=== PATIENT | male | born 1990 | race Caucasian/White ===

== ENCOUNTER 2018-03-31 12:04 | Inpatient (IN) ==
--- NOTE | 2018-03-31 12:19 | Emergency Department Note ---
Disposition Clinical Impression: Septic joint of right hand Qualifiers: Septic arthritis organism: due to unspecified organism Qualified Code(s): M00.9 - Pyogenic arthritis, unspecified Disposition: Admitted As Inpatient Condition: Good Referrals: NONE,PCP [Primary Care Provider] - Forms: ED Satisfaction Letter Time of Disposition: 13:50 Skin/Abscess/FB HPI Chief complaint: ED Skin/Abscess/Foreign Body Stated complaint: R finger swelling Time Seen by Provider: 03/31/18 12:11 Source: patient Mode of arrival: ambulatory Limitations: no limitations Nursing Notes Reviewed: Yes Vital Signs Reviewed: Yes HPI Narrative: 27-year-old who comes in with a swollen right index finger. Patient seen here yesterday for same. Patient states he is on Vivitrol but is continuing to inject methamphetamine which he lasted several days ago. Pt Subjective Complaint: abscess/boil Onset (ago): day(s) Location: R hand (Index finger) Severity: moderate Severity scale (1-10): 4 Quality: aching Consistency: constant Improves with: none Worsens with: movement Context: IVDA Associated symptoms: Reports: denies other symptoms Allergies Allergy/AdvReac Type Severity Reaction Status Date / Time hydrocodone Allergy Vomiting Verified 03/31/18 12:06 Constitutional: Denies: fever, chills, weakness, weight change Eyes: Denies: eye pain, eye discharge, vision change ENT ED: Denies: ear pain, throat pain, dental pain, hearing loss, epistaxis, congestion, dysphagia Cardiovascular: Denies: chest pain, palpitations, dyspnea on exertion, edema, syncope Respiratory: Denies: cough, dyspnea, wheezes, hemoptysis, stridor Gastrointestinal: Denies: abdominal pain, nausea, vomiting, diarrhea, constipation, hematemesis, melena, hematochezia Genitourinary: Denies: urgency, dysuria, frequency, hematuria Musculoskeletal: Reports: arthralgia. Denies: back pain, neck pain, myalgia Integumentary: Denies: rash, abrasion, lesions Neurological: Denies: headache, weakness, numbness, paresthesias, confusion, abnormal gait, vertigo Psychiatric: Denies: anxiety, depression, suicidal thoughts, homicidal thoughts , auditory hallucinations, visual hallucinations Endocrine: Denies: fatigue Hematological/Lymphatic: Denies: easy bleeding, easy bruising Allergic/Immunologic: Denies: facial swelling, urticaria Past Medical History - Past Medical History Medical history: Reports: non-contributory, other Psychiatric history: Reports: anxiety, depression - Social History Smoking Status: Current every day smoker Smokeless Tobacco Status: No Alcohol use: Reports: rarely Drug use: Reports: IV Drug Use Physical Exam - General Limitations: no limitations General appearance: alert, in no apparent distress - Head Head exam: atraumatic, normocephalic, normal inspection - Eye Eye exam: Present: normal appearance, PERRL, EOMI - Expanded Eye Exam Pupils: Left: reactive - ENT ENT exam: normal exam, normal oropharynx, mucous membranes moist - Expanded ENT Exam External ear exam: Present: normal external inspection Mouth exam: Present: normal external inspection Teeth exam: Present: normal inspection Throat exam: Present: normal inspection - Neck Neck exam: Present: normal inspection, full ROM, trachea midline - Chest Chest inspection: Present: normal inspection, symmetric chest wall rise - Respiratory Respiratory exam: Present: normal lung sounds bilaterally - Cardiovascular Cardiovascular exam: Present: regular rate, normal rhythm, normal heart sounds - Abdominal Exam Abdominal exam: Present: soft, Non-Tender. Absent: tenderness, distention, guarding, rebound, rigidity - Extremities Exam Extremities exam: Present: normal inspection, full ROM. Absent: tenderness, pedal edema - Expanded Upper Extremity Exam Shoulder exam: Present: normal inspection, full ROM Arm exam: Present: normal inspection, full ROM Elbow exam: Present: normal inspection, full ROM Forearm/Wrist exam: Present: normal inspection, full ROM Hand exam: Present: tenderness, swelling, erythema (Index finger at the DIP joint) Vascular exam: Normal: capillary refill, radial pulse - Expanded Lower Extremity Exam Hip/Pelvis exam: Present: normal inspection, full ROM Upper leg exam: Present: normal inspection, full ROM Knee exam: Present: normal inspection, full ROM Lower leg exam: Present: normal inspection, full ROM Ankle exam: Present: normal inspection, full ROM Foot/toe exam: Present: normal inspection, full ROM Neurovascular/Tendon exam: Absent: motor deficit, sensory deficit, tendon deficit - Back Exam Back exam: Present: normal inspection, full ROM. Absent: tenderness - Neurological Exam Neurological exam: Present: alert, oriented X3 - Expanded Neurological Exam Patient oriented to: Present: person, place, time Coma Scale Eye Opening: Spontaneous Coma Scale Motor Response: Obeys Commands Coma Scale Verbal Response: Oriented Coma Scale Total: 15 - Psychiatric Psychiatric exam: Present: normal affect, normal mood - Skin Skin exam: Present: warm, dry, intact, normal color Course - Reevaluation(s) Reevaluation #1: 27-year-old with the infection overlying the DIP joint he has a lot of pain with movement of the joint could be a septic joint. Consultation obtained with orthopedics and will see the patient in consult. Time: 13:51 - Consultations Consultation #1: Discussed with Dr. Grover, admit to the hospitalist he will see the patient in consult. Time: 13:50 Consultation #2: Discussed with Dr. Rhodes Time: 13:59 Vital Signs Temperature 97.4 F L 03/31/18 12:05 Pulse Rate 103 03/31/18 12:05 Respiratory Rate 16 03/31/18 12:05 Blood Pressure 143/88 03/31/18 12:05 O2 Sat by Pulse Oximetry 97 03/31/18 12:05 Temperature 97.4 F L 03/31/18 12:18 Pulse Rate 103 03/31/18 12:18 Respiratory Rate 16 03/31/18 12:18 Blood Pressure 143/88 03/31/18 12:18 O2 Sat by Pulse Oximetry 97 03/31/18 12:18 Oxygen Delivery Oxygen Delivery Room Air Procedures - Abscess I/D Consent obtained: verbal consent Site: upper extremity Side (if applicable): right Local Anesthetic: lidocaine 1% Technique: incised with #11 blade Amount of fluid: 1 (Culture obtained) Skin/Abscess/Foreign Body - Lab Data Result diagrams: 03/31/18 12:36 03/31/18 12:36 Lab Results 03/31/18 03/31/18 03/31/18 Range/Units 12:36 12:36 12:36 WBC 14.9 H (4.3-11.1) K/mcL RBC 4.79 (4.19-5.50) M/mcL Hgb 14.8 (12.9-16.9) g/dL Hct 43.7 (37.5-50.1) % MCV 91.2 (83.0-100.0) fL MCH 30.9 (28.0-33.3) pg MCHC 33.9 (31.6-35.5) g/dL RDW 12.7 (11.5-14.5) % Plt Count 302 (140-400) K/mcL MPV 10.2 (9.4-12.4) fL Immature Gran % 0.4 (0-4) % Seg Neutrophils % 82.9 % Lymphocytes % 10.3 % Monocytes % 5.8 % Eosinophils % 0.3 % Basophils % 0.3 % Neutrophils # 12.4 H (1.6-8.9) K/mcL Lymphocytes # 1.5 (0.6-4.6) K/mcL Monocytes # 0.9 (0.0-1.3) K/mcL Eosinophils # 0.0 (0.0-0.6) K/mcL Basophils # 0.1 (0.0-0.2) K/mcL ESR 15 H (0-10) mm/hr Sodium 137 (136-145) mEq/L Potassium 3.5 (3.5-5.1) mEq/L Chloride 104 (98-107) mEq/L Carbon Dioxide 27 (23-29) mEq/L BUN 14 (6-20) mg/dL Creatinine 0.88 (0.70-1.30) mg/dL Est GFR ( Amer) > 60 (> 60) Est GFR (Non-Af Amer) > 60 (> 60) BUN/Creatinine Ratio 16 (6-26) Glucose 121 H (70-105) mg/dL Calculated Osmolality 286 (280-300) Calcium 9.4 (8.6-10.3) mg/dL
[2018-03-31 12:55] LABS: Eosinophils % 0.3 %; Hematocrit 43.7 % (37.5-50.1); Hemoglobin 14.8 g/dL (12.9-16.9); Immature Granulocytes % 0.4 % (0-4); Lymphocytes % 10.3 %; Mean Corpuscular HGB Conc 33.9 g/dL (31.6-35.5); Mean Corpuscular Hemoglobin 30.9 pg (28.0-33.3); Mean Corpuscular Volume 91.2 fL (83.0-100.0); Mean Platelet Volume 10.2 fL (9.4-12.4); Monocytes % 5.8 %; Platelet Count 302 K/mcL (140-400); Red Blood Count 4.79 M/mcL (4.19-5.50); Red Cell Distribution Width 12.7 % (11.5-14.5); Segmented Neutrophils % 82.9 %
[2018-03-31 12:56] LABS: Basophils # 0.1 K/mcL (0.0-0.2); Basophils % 0.3 %; Lymphocytes # 1.5 K/mcL (0.6-4.6); Monocytes # 0.9 K/mcL (0.0-1.3); Neutrophils # 12.4 K/mcL (1.6-8.9)
[2018-03-31 13:15] LABS: BUN/Creatinine Ratio 16 (6-26); Blood Urea Nitrogen 14 mg/dL (6-20); Calcium 9.4 mg/dL (8.6-10.3); Carbon Dioxide 27 mEq/L (23-29); Chloride 104 mEq/L (98-107); Glucose 121 mg/dL (70-105); Osmolality,Calculated 286 (280-300); Potassium 3.5 mEq/L (3.5-5.1); Sodium 137 mEq/L (136-145); eGFR For African Americans > 60 (> 60); eGFR For Non-African Americans > 60 (> 60)
[2018-03-31] MEDS ORDERED: Lidocaine 1% 20 ML MDV INFILT ONE (13:47)
[2018-03-31] MEDS ORDERED: Piperacillin/Tazobactam 3.375 GM in 0.9 % Sodium Chloride Mini Bag 100 ML IVPB ONE (13:47)
[2018-03-31] MEDS ORDERED: Ketorolac 15 MG/ML VIAL IVP ONE (14:24)
[2018-03-31] MEDS ORDERED: *HR* Promethazine 25 MG/ML VIAL IVP PRN (15:09)
[2018-03-31] MEDS ORDERED: Acetaminophen 325 MG TABLET PO PRN (15:09)
[2018-03-31] MEDS ORDERED: Naloxone 0.4 MG/ML INJ IVP PRN (15:09)
[2018-03-31] MEDS ORDERED: Ketorolac 15 MG/ML VIAL IVP PRN (15:09)
[2018-03-31] MEDS ORDERED: Ondansetron 4 MG/2 ML VIAL IVP PRN (15:09)
[2018-03-31] MEDS ORDERED: *HR* LORazepam 1 MG TABLET PO PRN (15:17)
--- NOTE | 2018-03-31 15:27 | Internal Med History&Physical ---
Date of Encounter: 03/31/18 Time of Encounter: 14:45 Internal Medicine - H&P: HPI Chief complaint: Right had index finger swelling Admitted From: Emergency Dept Plans for Post Hospital Care: Home History of present illness: Mr. Quiñonez is a 27 year old male with a known past medical history of narcotic dependent currently on Vivitrol injections, active IV drug abuse with Methamphetamine, had last dose last night, and chronic tobacco dependence patient presented to emergency room complaining about one week history of swelling , redness and pain in his right index finger which seems to progressive worsening now. Patient denied of any trauma, however he mentioned he does not remember exactly what happened. He noticed a small pimple like growth on the right index finger at the distal phalanx which seems to progressive worsening now. His CT of the hand showed cellulitis off the 2nd visit with no well-defined, drainable fluid collection Past Med Surg Social Fam HX - Past Medical History Medical history: non-contributory, other Additional medical history: TBI 2008 Psychiatric history: anxiety, depression - Social History Smoking Status: Current every day smoker Smokeless Tobacco Status: No Alcohol use: rarely Drug use: IV Drug Use (Actively doing IV methamphetamines) - Additional Family History Additional family history: Family hsitory reviewed and non contribuitory to current problem. Internal Medicine - H&P: Meds Naltrexone Microspheres [Vivitrol] 380 mg IM QMONTH 03/31/18 [History] 3 Allergy/AdvReac Type Severity Reaction Status Date / Time haloperidol [From Haldol] AdvReac See Verified 03/31/18 15:01 Comments hydrocodone AdvReac Vomiting Verified 03/31/18 15:01 All Systems PM: A 10-system review of systems was performed and is negative for pertinent findings except as documented above in the HPI. Review of systems: All the systems are reviewed everything is benign except the systems and symptoms I mentioned in the history of present illness - Constitutional Vitals: Temp Pulse Resp BP Pulse Ox 97.4 F L 103 16 143/88 97 03/31/18 12:18 03/31/18 12:18 03/31/18 12:18 03/31/18 12:18 03/31/18 12:18 General appearance: Present: A&O X 3, no acute distress, answers questions appropriately - Head Head exam: Present: atraumatic, normal inspection - Neck Neck exam general surgery: Present: supple - Respiratory Respiratory exam: Present: decreased breath sounds. Absent: rales, respiratory distress, rhonchi, wheezes - Cardiovascular Cardiovascular exam: Present: +S1, +S2, tachycardia. Absent: diastolic murmur, gallop, rubs, systolic murmur - GI/Abdominal GI/Abdominal exam: Present: normal bowel sounds, soft. Absent: rebound, rigid, tenderness - Extremities Exam Extremities exam: Present: tenderness ( severe tenderness over the right index finger noticed). Absent: calf tenderness, pedal edema Additional comments: He does have small have 0.5cm size Loculated fluid collection over the right index finger of the distal phalanx area on the palmar region noticed - Expanded Upper Extremities Exam Hand wrist exam: Present: swelling, tenderness (Right index finger) - Back Exam Back exam: Absent: CVA tenderness (L), CVA tenderness (R) - Neurological Exam Neurological exam: Present: alert, oriented X3 - Psychiatric Psychiatric exam: Present: normal affect, normal mood - Skin Skin exam: Absent: rash Internal Med - H&P Results - Labs CBC & Chem 7: 03/31/18 12:36 03/31/18 12:36 - Assessment and plan (1) Sepsis Current Visit: Yes Status: Acute Assessment and plan: Admit the patient into Medr he does meet sepsis criteria with elevated white count, sinus tachycardia and source of infection as right hand index finger abscess blood cultures were drawn in the ER requested for wound culture after I & D in the ER started him on empirical antibiotic with clindamycin IV hydration Qualifiers: Sepsis type: sepsis due to unspecified organism Qualified Code(s): A41.9 - Sepsis, unspecified organism (2) Abscess of right index finger Current Visit: Yes Status: Acute Assessment and plan: Ortho consulted by ER attending I & D attempted in the ER will follow-up on the one culture started him on empirical antibiotic clindamycin for better aerobic and anaerobic coverage continue symptomatic and supportive care (3) Cellulitis of hand, right Current Visit: Yes Status: Acute (4) Substance abuse Current Visit: Yes Status: Acute Assessment and plan: Counseled to quit drugs (5) IV drug abuse Current Visit: Yes Status: Acute Assessment and plan: Had last dose of methamphetamine last night High risk for withdrawal symptoms will place him on CIWA scale assessment IV hydration Ativan as needed for anxiety/withdrawal symptoms (6) Tobacco dependence Current Visit: Yes Status: Acute Assessment and plan: Counseled to quit smoking placed on nicotine patch - Time Spent With Patient Total time spent is greater than 50% in coordination of care (as documented) at patient's floor/unit and/or counseling patient:
[2018-03-31] MEDS: 0.9 % Sodium Chloride 1,000 ML IVC SCH (16:19)
[2018-03-31] MEDS: Nicotine 21 MG PATCH.TD24 TD SCH (16:19)
[2018-03-31] MEDS: Clindamycin 600 MG/50 ML 600 MG/50 ML IV.SOLN IVPB SCH ×2 (16:22→23:01)
[2018-04-01 04:38] LABS: Basophils % 0.4 %; Eosinophils # 0.2 K/mcL (0.0-0.6); Eosinophils % 1.6 %; Hematocrit 41.8 % (37.5-50.1); Hemoglobin 13.8 g/dL (12.9-16.9); Immature Granulocytes % 0.4 % (0-4); Lymphocytes # 1.2 K/mcL (0.6-4.6); Lymphocytes % 11.6 %; Mean Corpuscular Hemoglobin 30.1 pg (28.0-33.3); Mean Corpuscular Volume 91.3 fL (83.0-100.0); Mean Platelet Volume 10.3 fL (9.4-12.4); Monocytes # 0.8 K/mcL (0.0-1.3); Monocytes % 7.9 %; Neutrophils # 8.1 K/mcL (1.6-8.9); Nucleated Red Blood Cells 0.2 /100 WBC (0); Platelet Count 257 K/mcL (140-400); Red Blood Count 4.58 M/mcL (4.19-5.50); Segmented Neutrophils % 78.1 %
[2018-04-01 04:56] LABS: BUN/Creatinine Ratio 14 (6-26); Blood Urea Nitrogen 10 mg/dL (6-20); Calcium 8.7 mg/dL (8.6-10.3); Carbon Dioxide 25 mEq/L (23-29); Chloride 110 mEq/L (98-107); Glucose 107 mg/dL (70-105); Osmolality,Calculated 290 (280-300); Potassium 3.8 mEq/L (3.5-5.1); Sodium 140 mEq/L (136-145); eGFR For African Americans > 60 (> 60); eGFR For Non-African Americans > 60 (> 60)
[2018-04-01] MEDS: 0.9 % Sodium Chloride 1,000 ML IVC SCH (05:17)
--- NOTE | 2018-04-01 07:40 | Orthopedic Consult Note ---
Date of Encounter: 04/01/18 Time of Encounter: 07:37 Assessment and Plan (1) Abscess of right index finger Current Visit: Yes Status: Acute I did discuss the diagnosis in detail with the patient. He does have a subcutaneous abscess to the right index finger. I do not have concern for deeper infection into the interphalangeal joints or into the flexor tendon sheath. An attempt was made for incision and drainage in the emergency department however the abscess was not decompressed. My recommendation is bedside incision and drainage. I will perform this later today under a local anesthetic. His labs have improved overnight. Anticipate discharge later today on oral antibiotics after the I&D. History of Present Illness HPI: Mr. Quiñonez is a 27 year old male who is admitted to the hospitalist due to an abscess of the right index finger. The patient said symptoms began about 2 days ago and without known cause. He is apparently a former drug user however he denies any injections. Symptoms are isolated to the right index finger about the volar and radial aspect. There may localized without spreading into the hand. The symptoms include pain and achiness without any associated numbness, tingling, or other signs or symptoms. Symptoms are worse with movement and use and better with rest. No other modifying factors. Past Med Surg Social Fam HX - Past Medical History Medical history: non-contributory, other Additional medical history: TBI 2009 Psychiatric history: anxiety, depression - Social History Smoking Status: Current every day smoker Packs per day: 1 Smokeless Tobacco Status: No Alcohol use: rarely Drug use: marijuana, methamphetamine, IV Drug Use Medications and Allergies Naltrexone Microspheres [Vivitrol] 380 mg IM QMONTH 03/31/18 [History] 3 Allergy/AdvReac Type Severity Reaction Status Date / Time haloperidol [From Haldol] AdvReac See Verified 03/31/18 15:01 Comments hydrocodone AdvReac Vomiting Verified 03/31/18 15:01 All Systems Reviewed: Constitutional and musculoskeletal systems were reviewed and are negative unless otherwise stated in history of present illness. Physical Exam - Constitutional Vitals: Temp Pulse Resp BP Pulse Ox 97.6 F 74 16 124/79 97 04/01/18 07:29 04/01/18 07:29 04/01/18 07:29 04/01/18 07:29 04/01/18 07:29 CONSTITUTIONAL -Vitals reviewed -The patient is well developed, well nourished, well groomed PSYCHIATRIC -Fully alert and oriented -Pleasant mood RIGHT UPPER EXTREMITY The skin and the soft tissue envelope are intact the exception of a pinpoint I& D performed in the emergency department over a 6 mm in diameter raised abscess about the volar and radial aspect of the index finger just distal to the PIP joint. Expected tenderness in this area. No cellulitis. Mild generalized swelling. He is able to flex and extend the digit with limitation due to the pain and swelling. There is no tenderness along the flexor tendon sheath. The patient can actively flex and extend all digits, extend the thumb, cross the index and long fingers, make an okay sign, and oppose the thumb. The fingertips are all grossly sensate and well-perfused, and the radial artery pulse is 2+. Diagnostic Imaging: I did personally review and interpret x-rays and the CT scan of the right index finger which do not show any fractures or dislocations. Suspicion for an abscess is seen on the CT. Results - Labs Result Diagrams: 04/01/18 03:59 04/01/18 03:59 Labs: Abnormal lab results Nucleated RBCs/100 WBC 0.2 /100 WBC (0) H 04/01/18 03:59 ESR 15 mm/hr (0-10) H 03/31/18 12:36 Chloride 110 mEq/L (98-107) H 04/01/18 03:59 Glucose 107 mg/dL (70-105) H 04/01/18 03:59 H & H 04/01/18 Range/Units 03:59 Hgb 13.8 (12.9-16.9) g/dL Hct 41.8 (37.5-50.1) % All other labs normal. Consult Discharge Plan - Plan Referrals: NONE,PCP [Primary Care Provider] -
[2018-04-01] MEDS: Nicotine 21 MG PATCH.TD24 TD SCH (08:12)
[2018-04-01] MEDS: Clindamycin 600 MG/50 ML 600 MG/50 ML IV.SOLN IVPB SCH (08:13)
[2018-04-01 11:10] VITALS: BP 122/81
--- NOTE | 2018-04-01 11:46 | Discharge Summary ---
<Kevan Cárdenas - Last Filed: 04/01/18 13:36> - NOTES TO OUTPATIENT PROVIDER Notes to Outpatient Provider: Right index finger abscess, drained with I &D, discharged on Clindamycin for 14 days total. F/U with ortho, Dr. Kenny. Date of Encounter: 04/01/18 Time of Encounter: 09:40 - Discharge Diagnosis (1) Abscess of right index finger Priority: Primary Status: Acute (2) Cellulitis of hand, right Priority: Secondary Status: Acute (3) Sepsis Priority: Secondary Status: Acute Qualifiers: Sepsis type: sepsis due to unspecified organism Qualified Code(s): A41.9 - Sepsis, unspecified organism (4) Substance abuse Priority: Secondary Status: Acute (5) IV drug abuse Priority: Secondary Status: Acute (6) Tobacco dependence Priority: Secondary Status: Acute Hospital course: Mr. Quiñonez is a 27 year old male who is admitted to the hospitalist due to an abscess of the right index finger. symptoms began about 2 days ago and without known cause. Noted to be former drug user, denies any recent injections. Symptoms are isolated to the right index finger about the volar and radial aspect. No numbness, tingling, loss of function. Symptoms worse with movement. I&D attempted in ED without success. Patient admitted initially meeting sepsis criteria with leukocytosis, tachycardia, and infectious source-- symptoms resolved. CT of RUE suggestive of cellulitis of the digit. Patient was started empirically on Clindamycin. Wound culture grew S. aureus. Ortho hand surgeon consult, Dr. Kenny saw patient, performed bedside I&D and instructed patient on wound care with outpatient follow up in 1 week. Discharged to complete 14 day course of clindamycin. Discharge discussed with: patient, family, nurse Time spent discussing smoking cessation with patient: 3 to 10 minutes - Time Spent with Patient Total time spent providing and/or coordinating discharge services: Less than 30 minutes - Discharge Medications Prescriptions: Clindamycin HCl 450 mg PO TID 14 Days #60 capsule Lactobacillus Acidophilus [Acidophilus] 1 each PO DAILY 14 Days #14 capsule Home Medications: Naltrexone Microspheres [Vivitrol] 380 mg IM QMONTH 03/31/18 [History] Clindamycin HCl 450 mg PO TID 14 Days #60 capsule 04/01/18 [Rx] Lactobacillus Acidophilus [Acidophilus] 1 each PO DAILY 14 Days #14 capsule 09/08 [Rx] Allergies/Adverse Reactions: 3 Allergy/AdvReac Type Severity Reaction Status Date / Time haloperidol [From Haldol] AdvReac See Verified 03/31/18 15:01 Comments hydrocodone AdvReac Vomiting Verified 03/31/18 15:01 Date of admission: 03/31/18 15:09 Primary care physician: PCP NONE Discharging clinician: Alexandro Rhodes Anticipated date of discharge: 04/01/18 - Constitutional Vitals: Temp Pulse Resp BP Pulse Ox 97.7 F 72 16 122/81 97 04/01/18 11:07 04/01/18 11:07 04/01/18 11:07 04/01/18 11:07 04/01/18 11:07 General appearance: Present: cooperative, A&O X 3, no acute distress, answers questions appropriately - Head Head exam: Present: atraumatic, normal inspection, normocephalic - Eye Eye exam: Present: EOMI, normal appearance - ENT ENT exam: Present: mucous membranes moist - Neck Neck exam general surgery: Present: full ROM, normal inspection - Respiratory Respiratory exam: Present: CTAB. Absent: respiratory distress, rhonchi, stridor , wheezes - Cardiovascular Cardiovascular exam: Present: RRR, +S1, +S2 - GI/Abdominal GI/Abdominal exam: Present: normal bowel sounds, soft. Absent: distended, guarding, tenderness - Extremities Exam Extremities exam: Present: warm. Absent: pedal edema Additional comments: Left upper extremity: Left wrist and hand wrapped with coban, normal appearance of fingers and remaining LUE. Right upper extremity: approx 0.5cm raised erythematous, abscess present on the right index finger on the volar and radial aspect, distal to PIP joint. Tenderness with palpation and movement. Able to flex/extend joints of digit with some limitation to pain and swelling. Good capillary refill. - Neurological Exam Neurological exam: Present: alert, oriented X3, no focal deficits - Psychiatric Psychiatric exam: Present: normal affect, normal mood - Skin Skin exam: Present: dry, warm. Absent: cyanosis, rash Additional comments: see extremity exam. - Patient Status Disposition: Home, Self-Care Condition: Good Functional capacity at discharge: independent ambulation Overall status at discharge: patient is progressing back to baseline - Discharge Instructions Follow Up With: Jake Kenny MD [Partnered Physician] - 04/08/18 10:40 am Additional Instructions: Please complete antibiotics. Plan for outpatient follow up in [address] Kenny. Wound care as instructed by Surgeon. Instructed to call office sooner or seek medical care for any new or worsening symptoms or concerns. - Diet and Activity Activity: resume usual activities as tolerated Diet: advance to your usual diet - VTE Documentation of Mechanical Device: Intermittent pneumatic compression device <Alexandro Rhodes - Last Filed: 04/01/18 16:31> Orders not resulted at time of discharge: Pending orders 04/01/18 12:11 Culture,Anaerobic [RM] Routine Culture,Wound [RM] Routine Date of Encounter: 04/01/18 - Discharge Diagnosis (1) Sepsis Status: Acute Qualifiers: Sepsis type: sepsis due to unspecified organism Qualified Code(s): A41.9 - Sepsis, unspecified organism (2) Abscess of right index finger Status: Acute (3) Cellulitis of hand, right Status: Acute (4) Substance abuse Status: Acute (5) IV drug abuse Status: Acute (6) Tobacco dependence Status: Acute Hospital course: Mr. Quiñonez is a 27 year old male - Time Spent with Patient Total time spent providing and/or coordinating discharge services: Date of admission: 03/31/18 15:09 Primary care physician: PCP NONE - Constitutional Vitals: Temp Pulse Resp BP Pulse Ox 97.7 F 72 16 122/81 97 04/01/18 11:07 04/01/18 11:07 04/01/18 11:07 04/01/18 11:07 04/01/18 11:07 - Attending Attestation I examined this patient and my medical decision-making was reviewed with the Resident Physician Dr. Cárdenas. I agree with the documented findings, disposition and treatment plan as described except to the extent set forth below. Mr. Quiñonez is a 27 year old male who is admitted to the hospitalist due to an abscess of the right index finger. He did go for I & D by Ortho today. Pt stated he is feeling lot better after the I & D. So will d/c him home with PO Clindamyicn for total 2 weeks course and f/u with Ortho as an out pt. Educated the pt about wound care and dressing. His Rt hand swelling and erythema improved now
== END 2018-04-01 13:37 | disposition home or self-care (01) | DRG 720 ==
LOC: EMEROO 12:04 → 3ANU 12:04
PROVIDERS: ADMIT Family Medicine; ATTEND Family Medicine